=== PATIENT | female | born 1940 | race Caucasian/White ===

== ENCOUNTER 2024-12-13 01:28 | Inpatient (IN) | payer MEDICARE, SELFPAY ==
[2024-12-12 19:53] VITALS: BP 139/91
--- NOTE | 2024-12-12 22:45 | ED.GENMED ---
History of Present Illness
<Mely Lyons NP - Last Filed: 12/14/24 00:28>
General
Chief Complaint: DVT/Possible Blood Clot
Source: patient
Exam Limitations: none
Time Seen by Provider: 12/12/24 21:40
Nursing documentation reviewed up to this point in time: agreed with
History of Present Illness
History of Present Illness:
patient states she was making her bed and lifted the side of her mattress. Reports sudden onset of pain to both thighs. Reports thighs began to feel numb. SHe states that since then she has had pain in her back and LLE. Noticed swelling to LLE.
SHe was taken to by daughter marlin. Advised to come to ED to r/o DVT. No history of blood clots. She has a history of metastatic breast CA, follow with oncology at [facility]. Denies any cp/pressure, SOB, cough
Past History
<Mely Lyons NP - Last Filed: 12/14/24 00:28>
Past History
ED Past Medical History: Cancer (metastatic breast CA)
Review of Systems
<Mely Lyons NP - Last Filed: 12/14/24 00:28>
Review of Systems
Allergies reviewed?: Yes
All Other Systems: ROS reviewed and negative except as documented in HPI and ROS
Constitutional: Reports no symptoms
EENT: Reports no symptoms
Respiratory: Reports no symptoms
Cardiac: Reports no symptoms
ABD/GI: Reports no symptoms
: Reports no symptoms
Musculoskeletal: Reports joint pain (Pain to low back LLE)
Skin: Reports other (LLE swelling, bluish tinge)
Neurological: Reports numbness (LLE numbness)
Psychiatric: Reports no symptoms
Phy Exam
<Mely Lyons NP - Last Filed: 12/14/24 00:28>
General Physical Exam
General Presentation: mild distress
General age: appears stated age
General Skin: warm and dry
General Habitus: normal
Cardiovascular Exam
Cardiovascular Exam: regular rate/rhythm
Gastrointestinal Exam
Gastrointestinal Exam: non tender and soft
Neurological Exam
Neurological Exam: alert, oriented x3, CN II-XII intact, no motor deficits and no sensory deficits
Musculoskeletal Exam
Musculoskeletal Exam: full ROM and neuro vasc intact (left DP/PT pulses by doppler. )
Skin Exam
Skin Exam: warm/dry and other (LLE swelling from groin to toes, bluish tinge)
Psychiatric Exam
Psychiatric Exam: normal mood/affect
Course
<Mely Lyons NP - Last Filed: 12/14/24 00:28>
Orders/Labs/Results
Orders:
Orders
12/12/24 19:59
US Periph Venous LOWER Ext LT Urgent
Comment:
Reason For Exam: leg pain, swelling
12/12/24 22:52
Heparin 4,800 units IV NOW STA
Pharmacy Request to Place See Dose Instructions PO NOW STA
Discontinue all Active Warfarin orders?: Yes
Nursing to Place Non Medication Order As Directed
Physician Order: PTT 6 hours after initial start of Heparin infusion
Above order entered?: Yes
12/12/24 23:38
Heparin 4,800 units IV PRN PRN
12/12/24 23:43
Heparin 2,400 units IV PRN PRN
12/12/24 23:45
Heparin 17882 Units/250 ml 25,000 units in 250 ml IV PER PROTOCOL
Weight to be used for heparin protocol in kilograms (kg):: 60
Protocol:: DVT/PE
PTT Goal Range to be used:: PTT 73 to 111 seconds
Order type:: Initial
INITIAL Infusion Dose (UNITS/KG/hr) & then follow protocol:: 18 units/kg/hr
Infusion Dose in UNITS/hr & then follow protocol (UNITS/hr):: 1,100
INFUSION RATE in mL/hr & then follow protocol (mL/hr):: 11
For DVT/PE algorithm, re-bolus for low PTT?: Yes
PTT less than or equal to 64 seconds:: Re-bolus 80 units/kg (max 10,000units). Increase by 200 units/hr
(+ 2mL/hr)
PTT 64.1 to 72.9 seconds:: Re-bolus 40 units/kg (max 5,000 units). Increase by 100 units/hr
(+ 1mL/hr)
PTT 73 to 111 seconds:: Target Range. No change in rate.
PTT 111.1 to 130.9 seconds:: Decrease rate by 100 units/hr (- 1 mL/hr)
PTT 131 to 199.9 seconds:: HOLD for 1 hr. Then decrease by 200 units/hr (- 2mL/hr)
PTT greater than or equal to 200 seconds:: HOLD for 2 hrs & Notify Provider. Then decrease by 200 units/hr
(- 2mL/hr)
Lab follow-up:: Each change, PTT q6h until 2 consecutive are therapeutic. Then
PTT daily.
12/12/24 23:50
Complete Blood Count/With Diff Urgent
PTT Urgent
Comment: Obtain baseline before beginning heparin infusion if not already collected
12/13/24
CT Chest PE Study Urgent
Reason For Exam: extensive DVT
12/13/24 00:45
Comprehensive Metabolic Panel Urgent
Comment: REDRAW
12/13/24 01:11
Admit/Transfer Patient As Directed
Co-Sign Provider:
Level of Care: Inpatient admission
Assign to:: Medical/Surgical
Physician / Group: Noelle
Diagnosis: DVT
Reason for Hospitalization: DVT
Expected length of stay greater than two midnights?: Yes
ELOS- Estimated Length of Stay in days: 2
I certify the patient meets the requirements for IP care: Yes
PRN Pain Medication Management As Directed
May give lesser potent ordered pain med per pt: Yes
preference::
Protocol:: Medication orders for pain may be administered in a
manner that supports deferring to patient preference
when the pt is:
- Requesting an ordered lesser potent pain medication.
Least to most potent pain medications are defined
as: acetaminophen < NSAID < tramadol < opioids
(morphine, oxycodone, hydromorphone).
- Requesting a lesser dose of the same medication IF
ORDERED.
- Requesting a less intrusive route of administration
if both routes are prescribed by the provider (PO <
IV).
12/13/24 01:13
Code Status As Directed
Resuscitation Status: Do not resuscitate
Reached after discussion with pt or family/Healthcare POA: Yes
DNR Bracelet Application ONCE
12/13/24 05:53
PTT Q6
12/13/24 05:54
Acetaminophen [Tylenol] 650 mg PO Q4HPRN PRN
Bisacodyl [Dulcolax] 10 mg RECTAL [id number] PRN
Docusate W/Senna [Senokot-S] 1 tablet PO BIDPRN PRN
Polyethylene Glycol Powder [Miralax] 17 grams PO DAILYPRN PRN
Tramadol HCl [Ultram] 50 mg PO Q6HPRN PRN
12/13/24 05:54
VTE Contraindication Routine
VTE Mechanical Device Contraindication: Medical Contraindication
Pharmocologic Contraindication: Medical Contraindication
Activity As Directed
Activity Level: With Assistance
Neurological Checks As Directed
Frequency: q8h
Vital Signs As Directed
Frequency: Per unit guidelines
Lumbar Spine, 2 or 3 View [CR Lumbar Spine 2 Or 3 Views] Routine
Comment:
Reason For Exam: backpain rad to legs, h/o ca, eval compression fx
Pulse Ox/spot Check [RESP] Routine
Quantity: 1
Pt Eval And Treat Routine
Activity Level: With Assistance
12/13/24 Breakfast
Regular
At Your Request: Limited Participation
Does patient need a safe tray?: No
Levothyroxine [Synthroid] 112 mcg PO DAILY @ 0600
12/13/24 06:28
Basic Metabolic Panel IN AM
Complete Blood Count/No Diff IN AM
12/13/24 08:00
Calcium 300mg(Ca. Carb. 750mg) [Tums Ex (Extra Strength) Chewable Tablet] 300 mg PO DAILY
Carvedilol [Coreg] 12.5 mg PO DAILY
Cholecalciferol (Vitamin D3) [VITAMIN D3 (cholecalciferol)] 50 mcg PO DAILY
Lidocaine [Lidocaine 4% Patch] 1 patch TOPICAL DAILY
Apply Lidocaine patch(s) to:: low back
12/13/24 20:00
capecitabine 500 mg PO BID
12/13/24 22:00
Trazodone [Desyrel] 50 mg PO HS
Abnormal Lab Results
12/12/24 12/13/24
23:50 00:45
WBC 13.0 H 10^3/uL
(4.8-10.8)
RBC 3.30 L 10^6/uL
(4.20-5.40)
Hct 34.9 L %
(37.0-47.0)
MCV 105.8 H fL
(81.0-99.0)
MCH 36.7 H pg
(27.0-31.0)
RDW 14.6 H %
(11.5-14.5)
Abs Immat Gran (auto) 0.2 H 10^3/uL
(0-0.05)
Absolute Neuts (auto) 9.4 H 10^3/uL
(1.4-6.5)
Absolute Monos (auto) 1.2 H 10^3/uL
(0.1-0.6)
Immature Gran % 1.5 H %
(0-0.5)
Lymphocytes % 13.6 L %
(20.5-51.1)
BUN 28 H mg/dl
(7-17)
Creatinine 1.1 H mg/dL
(0.6-1.0)
Glucose 120 H mg/dl
(70-99)
12/12/24 23:50
12/13/24 00:45
Vital Signs
Initial and Last Documented VS:
Initial Vital Signs
Temp Pulse Resp BP Pulse Ox
98.1 F 113 20 139/91 99
12/12/24 19:53 12/12/24 19:53 12/12/24 19:53 12/12/24 19:53 12/12/24 19:53
Last Documented Vital Signs
Temp Pulse Resp BP Pulse Ox
98.6 F 98 18 121/65 95
12/13/24 23:40 12/13/24 23:40 12/13/24 23:40 12/13/24 23:40 12/13/24 23:40
<Viktor Evangelista, DO - Last Filed: 12/12/24 22:54>
Orders/Labs/Results
Orders:
Orders
12/12/24 19:59
US Periph Venous LOWER Ext LT Urgent
Comment:
Reason For Exam: leg pain, swelling
12/12/24 22:52
Heparin 4,800 units IV NOW STA
Pharmacy Request to Place See Dose Instructions PO NOW STA
Discontinue all Active Warfarin orders?: Yes
Nursing to Place Non Medication Order As Directed
Physician Order: PTT 6 hours after initial start of Heparin infusion
Above order entered?: Yes
12/12/24 23:38
Heparin 4,800 units IV PRN PRN
12/12/24 23:43
Heparin 2,400 units IV PRN PRN
12/12/24 23:45
Heparin 37922 Units/250 ml 25,000 units in 250 ml IV PER PROTOCOL
Weight to be used for heparin protocol in kilograms (kg):: 60
Protocol:: DVT/PE
PTT Goal Range to be used:: PTT 73 to 111 seconds
Order type:: Initial
INITIAL Infusion Dose (UNITS/KG/hr) & then follow protocol:: 18 units/kg/hr
Infusion Dose in UNITS/hr & then follow protocol (UNITS/hr):: 1,100
INFUSION RATE in mL/hr & then follow protocol (mL/hr):: 11
For DVT/PE algorithm, re-bolus for low PTT?: Yes
PTT less than or equal to 64 seconds:: Re-bolus 80 units/kg (max 10,000units). Increase by 200 units/hr
(+ 2mL/hr)
PTT 64.1 to 72.9 seconds:: Re-bolus 40 units/kg (max 5,000 units). Increase by 100 units/hr
(+ 1mL/hr)
PTT 73 to 111 seconds:: Target Range. No change in rate.
PTT 111.1 to 130.9 seconds:: Decrease rate by 100 units/hr (- 1 mL/hr)
PTT 131 to 199.9 seconds:: HOLD for 1 hr. Then decrease by 200 units/hr (- 2mL/hr)
PTT greater than or equal to 200 seconds:: HOLD for 2 hrs & Notify Provider. Then decrease by 200 units/hr
(- 2mL/hr)
Lab follow-up:: Each change, PTT q6h until 2 consecutive are therapeutic. Then
PTT daily.
12/12/24 23:50
Complete Blood Count/With Diff Urgent
PTT Urgent
Comment: Obtain baseline before beginning heparin infusion if not already collected
12/13/24
CT Chest PE Study Urgent
Reason For Exam: extensive DVT
12/13/24 00:45
Comprehensive Metabolic Panel Urgent
Comment: REDRAW
12/13/24 01:11
Admit/Transfer Patient As Directed
Co-Sign Provider:
Level of Care: Inpatient admission
Assign to:: Medical/Surgical
Physician / Group: Noelle
Diagnosis: DVT
Reason for Hospitalization: DVT
Expected length of stay greater than two midnights?: Yes
ELOS- Estimated Length of Stay in days: 2
I certify the patient meets the requirements for IP care: Yes
PRN Pain Medication Management As Directed
May give lesser potent ordered pain med per pt: Yes
preference::
Protocol:: Medication orders for pain may be administered in a
manner that supports deferring to patient preference
when the pt is:
- Requesting an ordered lesser potent pain medication.
Least to most potent pain medications are defined
as: acetaminophen < NSAID < tramadol < opioids
(morphine, oxycodone, hydromorphone).
- Requesting a lesser dose of the same medication IF
ORDERED.
- Requesting a less intrusive route of administration
if both routes are prescribed by the provider (PO <
IV).
12/13/24 01:13
Code Status As Directed
Resuscitation Status: Do not resuscitate
Reached after discussion with pt or family/Healthcare POA: Yes
DNR Bracelet Application ONCE
12/13/24 05:53
PTT Q6
12/13/24 05:54
Acetaminophen [Tylenol] 650 mg PO Q4HPRN PRN
Bisacodyl [Dulcolax] 10 mg RECTAL [id number] PRN
Docusate W/Senna [Senokot-S] 1 tablet PO BIDPRN PRN
Polyethylene Glycol Powder [Miralax] 17 grams PO DAILYPRN PRN
Tramadol HCl [Ultram] 50 mg PO Q6HPRN PRN
12/13/24 05:54
VTE Contraindication Routine
VTE Mechanical Device Contraindication: Medical Contraindication
Pharmocologic Contraindication: Medical Contraindication
Activity As Directed
Activity Level: With Assistance
Neurological Checks As Directed
Frequency: q8h
Vital Signs As Directed
Frequency: Per unit guidelines
Lumbar Spine, 2 or 3 View [CR Lumbar Spine 2 Or 3 Views] Routine
Comment:
Reason For Exam: backpain rad to legs, h/o ca, eval compression fx
Pulse Ox/spot Check [RESP] Routine
Quantity: 1
Pt Eval And Treat Routine
Activity Level: With Assistance
12/13/24 Breakfast
Regular
At Your Request: Limited Participation
Does patient need a safe tray?: No
Levothyroxine [Synthroid] 112 mcg PO DAILY @ 0600
12/13/24 06:28
Basic Metabolic Panel IN AM
Complete Blood Count/No Diff IN AM
12/13/24 08:00
Calcium 300mg(Ca. Carb. 750mg) [Tums Ex (Extra Strength) Chewable Tablet] 300 mg PO DAILY
Carvedilol [Coreg] 12.5 mg PO DAILY
Cholecalciferol (Vitamin D3) [VITAMIN D3 (cholecalciferol)] 50 mcg PO DAILY
Lidocaine [Lidocaine 4% Patch] 1 patch TOPICAL DAILY
Apply Lidocaine patch(s) to:: low back
12/13/24 20:00
capecitabine 500 mg PO BID
12/13/24 22:00
Trazodone [Desyrel] 50 mg PO HS
Abnormal Lab Results
12/12/24 12/13/24
23:50 00:45
WBC 13.0 H 10^3/uL
(4.8-10.8)
RBC 3.30 L 10^6/uL
(4.20-5.40)
Hct 34.9 L %
(37.0-47.0)
MCV 105.8 H fL
(81.0-99.0)
MCH 36.7 H pg
(27.0-31.0)
RDW 14.6 H %
(11.5-14.5)
Abs Immat Gran (auto) 0.2 H 10^3/uL
(0-0.05)
Absolute Neuts (auto) 9.4 H 10^3/uL
(1.4-6.5)
Absolute Monos (auto) 1.2 H 10^3/uL
(0.1-0.6)
Immature Gran % 1.5 H %
(0-0.5)
Lymphocytes % 13.6 L %
(20.5-51.1)
BUN 28 H mg/dl
(7-17)
Creatinine 1.1 H mg/dL
(0.6-1.0)
Glucose 120 H mg/dl
(70-99)
12/12/24 23:50
12/13/24 00:45
Vital Signs
Initial and Last Documented VS:
Initial Vital Signs
Temp Pulse Resp BP Pulse Ox
98.1 F 113 20 139/91 99
12/12/24 19:53 12/12/24 19:53 12/12/24 19:53 12/12/24 19:53 12/12/24 19:53
Last Documented Vital Signs
Temp Pulse Resp BP Pulse Ox
98.6 F 98 18 121/65 95
12/13/24 23:40 12/13/24 23:40 12/13/24 23:40 12/13/24 23:40 12/13/24 23:40
<Mely Lyons COLLECTION CLERK - Last Filed: 12/14/24 00:28>
*Pulse Oximetry
SaO2: 99
Patient hypoxic: no
*Critical Care Note
Total Time (30-74mins, 75-104mins- exclusive of procedures): Not Applicable
<Mely Lyons NP - Last Filed: 12/14/24 00:28>
Update Note
Update Note:
Patient to ED with complaint of LLE pain and swelling. US report of extensive occlusive DVT of common femoral vein thru the calf veins. NOn-occlusve thrombus in the proxial greater saphenous vein, and occlusive thrombus i estelita nid to distal greater
saphenous vein. Case discussed with dr. evangelista who also evaluated this patient. WIll start on heparin infusion and admit to hospitalist due to the extent of the thrombus. SHe denies any SOB, cp/pressure but will sent for PE ST. Discussed
findings and plan with patient and daughter and they are agreeable.
Requested medication list from patient and daughter. Patient does not recall current meds. Daughter states she gave full list to and then gave the discharge papers to triage. SHe reports she does not recall medications.
ED Attending Note
<Mely Lyons NP - Last Filed: 12/14/24 00:28>
-
Portions of this chart may have been created with voice recognition software.� Occasional wrong word or��sound alike� substitutions may have occurred due to the inherent limitations of voice recognition software.
<Viktor Evangelista DO - Last Filed: 12/12/24 22:54>
ED Attending Note
Patient seen and examined by attending physician: Yes
I performed the substantive portion of visit, reviewed & personally made and approve the management plan that is documented in note by myself or FELISA.: Yes
ED Attending Note:
Seen with COLLECTION CLERK examined independently patient with extensive left lower extremity DVT with tachycardia
Denies shortness of breath apparently having trouble walking, due to pain
Patient with color changes no coolness of her lower extremity able to get pulses by Doppler
Patient without true phlegmasia at this point other than I think that is a possibility moving forward
Low threshold to admit, will check CTA to rule out PE
Discharge Plan
Departure
Patient Disposition: Admit
Date of Disposition: 12/13/24
Time of Disposition: 00:21
Presentation/result/management discussed w/ accepting MD/DO: Hospitalist
Patient with high blood pressure during this ER visit?: No
Covid-19: Not Applicable
Discharge Problem:
DVT of lower extremity (deep venous thrombosis)
Interventions
Interventions:
*Risk Screen - Suicide Last Done: 12/13/24 05:27
*General Assessment Last Done: 12/12/24 19:58
*Neglect/Abuse Screening Last Done: 12/12/24 19:58
*ED- Fall Risk Assessment Last Done: 12/12/24 22:00
*ED COVID-19 Vaccine History Last Done: 12/13/24 05:27
*ED Influenza Vaccine History Last Done: 12/12/24 19:58
*Nursing Disposition Last Done: 12/12/24 22:00
ED- Cardiac Assessment Last Done: 12/12/24 21:53
ED- Pulmonary Assessment Last Done: 12/12/24 21:53
ED-Peripheral Vascular Assessment Last Done: 12/12/24 21:54
ED-Skin Assessment Last Done: 12/12/24 21:53
[2024-12-12 22:57] VITALS: BP 157/92
[2024-12-12 23:00] VITALS: BP 160/82
[2024-12-12] MEDS: HEPARIN 4800 UNITS IV (23:38)
[2024-12-12] MEDS: HEPARIN 25000 UNITS/250 ML IV (23:48)
[2024-12-13] VITALS (9 sets, daily range): BP systolic 105–132; BP diastolic 61–87; PULSE 112; BMI 25.5
[2024-12-13 00:14] LABS: APTT 27.0 Sec (23.4-35.0)
[2024-12-13 00:33] LABS: Hematocrit 34.9 % (37.0-47.0); Hemoglobin 12.1 g/dL (12.0-16.0); Mean Corp Hgb Conc. 34.7 g/dL (33.0-37.0); Mean Corpuscular Volume 105.8 fL (81.0-99.0); Nucleated Red Blood Cells % 0 %; Platelet Count 201 10^3/uL (130-400); Red Cell Dist. Width 14.6 % (11.5-14.5)
--- NOTE | 2024-12-13 00:48 | HPS.HSE ---
Family Physician
-
Family Physician: Macy Robbins
Chief Complaint
-
Leg swelling
History of Present Illness
This is a 84-year-old female with past medical history significant for breast cancer status post lumpectomy, hypothyroid, hypertension, presenting to the emergency department after developing swelling in left lower extremity.
She reported that she started having bilateral thigh pain after making her bed earlier in the day. As the day progressed she noticed some numbness in her thighs bilaterally. She started having radiation of the pain to her back and down mostly to
her left lower extremity. She noticed swelling in the left lower extremity and was taken to urgent care where she was advised to be evaluated in the emergency department to rule out a DVT.
Patient denies any prior history of venous thromboembolism. She denies any recent travels. She denies any known fractures,. She has no recent surgeries. She ambulates regularly with a walker as needed independent living facility.
She denies any shortness of breath. She denies any chest pain. She denies orthopnea or PND. She has denied any cough fevers or chills.
In the emergency department she was afebrile, blood pressure was 160/80 with a pulse of 95 and she was satting 90% on room air.
At a white count of 13, CBC otherwise unremarkable.
Ultrasound of the left lower extremity shows extensive occlusive thrombus throughout the common femoral vein Trufree calf veins, nonocclusive thrombus in the proximal greater saphenous vein and occlusive thrombus in the mid to distal greater
saphenous vein.
Medical History
Past Medical History
Past Medical History: Reports Cancer (breast Ca with mets to spine) and Hypothyroidism
Additional Past Medical History:
CKD III
Gallstones
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
Social History
Tobacco: Non-smoker
Alcohol: None
Drug: None
Family History
Family History: Not pertinent
Allergies / Home Medications
Allergies reflects when Allergies were last updated in [employer].
Home Medications with original date entered in [employer]
Allergy/Medication List:
Allergies
Allergy/AdvReac Type Severity Reaction Status Date / Time
No Known Allergies Allergy Unverified 12/12/24 19:58
Home Medications
Vitamin D3 50 mg PO DAILY 12/13/24
calcium 600 mg capsule 1,200 mg PO 1XD 12/13/24
capecitabine 500 mg tablet 500 mg PO 2XD 12/13/24
carvedilol 12.5 mg tablet 12.5 mg PO 1XD 12/13/24
levothyroxine 13 mcg capsule 1.12 mcg PO DAILY 12/13/24
trazodone 50 mg tablet 50 mg PO HS 12/13/24
vitamin F27-ceteh acid 1,000 mg PO DAILY 12/13/24
Review of Systems
-
Constitutional: Reports No Symptoms
EENT: Reports No Symptoms
Respiratory: Reports No Symptoms
Cardiac: Reports No Symptoms
Abdomen/GI: Reports No Symptoms
: Reports No Symptoms
Musculoskeletal: Reports Joint Pain and Edema
Skin: Reports No Symptoms
Neurological: Reports No Symptoms
Endocrine: Reports No Symptoms
Hematologic/Lymphatic: Reports No Symptoms
Psych: Reports No Symptoms
Physical Exam
Vital Signs
Vital Signs
Temp Pulse Resp BP Pulse Ox
98.1 F 95 17 160/82 98
12/12/24 19:53 12/12/24 23:00 12/12/24 23:00 12/12/24 23:00 12/12/24 23:00
Physical Exam
General: Well Developed, Well Nourished and No Apparent Distress
HEENT: NormoCephalic, Moist mucous membranes and Atraumatic
Respiratory: Clear
Cardiac: S1/S2 and Regular Rhythm; No Murmur or Rub
GI: Soft, Non Tender, Non Distended and Normal Bowel Sounds; No Organomegaly
Rectal: Deferred by Provider
Genito-urinary: Deferred by me
Musculoskeletal: No Clubbing, No Cyanosis, Edema, Left Lower Extremity and Other (There is mild positive straight leg raise on the left which she describes as a pulling sensation radiating posteriorly down her thigh. No elicted numbness or
tingling.)
Skin: No Rash
Neuro: AO x 3 and Nonfocal/grossly intact
Laboratory Results
-
12/12/24 23:50
Laboratory Results
APTT Cancelled 12/13/24 00:00
Total Bilirubin Cancelled 12/12/24 23:50
AST Cancelled 12/12/24 23:50
ALT Cancelled 12/12/24 23:50
Alkaline Phosphatase Cancelled 12/12/24 23:50
Data Reviewed
-
Ultrasound: Report Reviewed by me
Lab Data: Labs Reviewed by me
Old Records: Reviewed
Impression/Plan
-
IMPRESSION:
84-year-old with history of breast cancer currently being treated with capecitabine presenting to the emergency department with back pain and left lower extremity swelling found to have left lower extremity DVT that is quite extensive. She has no
respiratory symptoms. Labs unremarkable. Likely has DVT on the basis of malignancy as she has no other provoking signs of findings. Patient has chronic back pain that seems to be exacerbated. She does have a history of spinal mets from her
breast comes and we cannot rule out a new compression fracture.
PLAN:
Left lower extremity DVT -extensive with occlusive thrombosis but no Dolens.
-Admit to MedSurg
-Started on heparin
-CT PE pending
-If patient stable, can convert to oral anticoagulation, she will need to be on anticoagulation indefinitely in the setting of malignancy
-Monitor serial examinations
Back pain -mild radicular signs, no myelopathy
-Spinal x-ray to eval for compression fracture in lumbar spine
- CT PE should allow some imaging of thoracic spine
- if fracture evaluate mets and possible XRT tx
-Pain control with Tylenol, tramadol topical lidocaine for now
-PT consultation
Breast cancer
-Continue capecitabine for 3 mg till Wednesday, then she will have 1 week of
Review prophylaxis�on heparin subcu
CODE STATUS�DNR DNI
[2024-12-13 03:16] LABS: ALT (SGPT) 20 U/L (0-35); AST (SGOT) 22 U/L (14-36); Albumin 3.8 g/dl (3.5-5.0); Alkaline Phosphatase 87 U/L (38-126); Calcium 9.1 mg/dl (8.4-10.2); Carbon Dioxide 26 mmol/L (22-30); Chloride 104 mmol/L (98-107); Glucose 120 mg/dl (70-99); Potassium 5.1 mmol/L (3.5-5.1); Sodium 135 mmol/L (135-145); Total Protein 6.7 g/dl (6.3-8.2); eGFR 49.24
[2024-12-13 03:52] LABS: Blood Urea Nitrogen 28 mg/dl (7-17)
--- NOTE | 2024-12-13 05:57 | PTCARENOTE ---
Recieved pt from ED. Pt. ambulated from stretcher to bed with x1 asiist. Pt. Oriented to unit calll call hand within reach. Pt care ongoing
[2024-12-13] MEDS: SYNTHROID 112 MCG PO (06:25)
[2024-12-13 06:37] LABS: APTT > 200 Sec (23.4-35.0)
[2024-12-13 07:15] LABS: Hematocrit 35.5 % (37.0-47.0); Hemoglobin 12.0 g/dL (12.0-16.0); Mean Corp Hgb Conc. 33.8 g/dL (33.0-37.0); Mean Corpuscular Volume 106.0 fL (81.0-99.0); Platelet Count 196 10^3/uL (130-400); Red Cell Dist. Width 14.7 % (11.5-14.5)
[2024-12-13 08:22] LABS: Blood Urea Nitrogen 25 mg/dl (7-17); Carbon Dioxide 26 mmol/L (22-30); Estimated Creatinine Clearance 33 ml/min; eGFR 55.21
[2024-12-13 08:34] LABS: Calcium 9.0 mg/dl (8.4-10.2); Chloride 104 mmol/L (98-107); Glucose 113 mg/dl (70-99); Potassium 5.0 mmol/L (3.5-5.1); Sodium 135 mmol/L (135-145)
[2024-12-13] MEDS: COREG 12.5 MG PO ×2 (09:41→21:31)
[2024-12-13] MEDS: LIDOCAINE 4% PATCH 1 PATCH TOPICAL (09:41)
[2024-12-13] MEDS: TUMS EX (EXTRA STRENGTH) CHEWABLE TABLET 300 MG PO (09:41)
[2024-12-13] MEDS: VITAMIN D3 (cholecalciferol) 50 MCG PO (09:42)
--- NOTE | 2024-12-13 11:11 | W.PN.HOSP.TC ---
Today's Communication/Plan
-
as per discussion with [facility] - will have bedside eval by them
afterwards - D/C on [facility]
Assessment / Plan
Assessment / Plan
84yo F with PMHX of metastatic breast CA, hypothyroidism, HTN came with 1 day of LLE swelling, found acute DVT. CT chest also done but not concerning of pulmonary embolism, also patient not hypoxxic. No significant LLE pain or discoloration seen
bedside.
A/P:
#Acute DVT
most likely 2/2 CA
Heparin in hospital then to [facility] - verifying pricing
[facility] consult
#Leukocytosis
2/2 DVT
#Small focus of groundglass opacity within the RUL
new compared to PET/CT scan of September 20, 2024
Scheduled for oncologist appt on Jan 12 and as per daughter -planned for PET. Emphasized importance of PET scan
#Breast CA
#Metastatic disease of the spine
#Chronic vertebral compression deformities
no new ambulatory deficiency
chronic back pain
cont following with existent oncologist
#Hypothyroidism
#HLD
#essential HTN
cont home meds
DVT ppx heparin
DNR/DNI
I have spent at least 55min reviewing chart, test results, communication with consultants and providing direct patient care
Anticipated Discharge: Within 24 hours
Subjective/Interval History
-
Date of Service: December 13, 2024
Objective Data
-
Labs:
Laboratory Results
12/12/24 12/13/24 12/13/24
23:50 00:00 00:45
WBC 13.0 H
Hgb 12.1
Hct 34.9 L
Plt Count 201
APTT 27.0 Cancelled
Sodium Cancelled 135
Potassium Cancelled 5.1
Chloride Cancelled 104
Carbon Dioxide Cancelled 26
BUN Cancelled 28 H
Creatinine Cancelled 1.1 H
Glucose Cancelled 120 H
Calcium Cancelled 9.1
Total Bilirubin Cancelled 0.5
AST Cancelled 22
ALT Cancelled 20
Alkaline Phosphatase Cancelled 87
12/13/24 12/13/24 12/13/24
05:53 06:28 12:00
WBC 11.6 H
Hgb 12.0
Hct 35.5 L
Plt Count 196
APTT > 200 H* Pending
Sodium 135
Potassium 5.0
Chloride 104
Carbon Dioxide 26
BUN 25 H
Creatinine 1.0
Glucose 113 H
Calcium 9.0
Total Bilirubin
AST
ALT
Alkaline Phosphatase
Vital Signs:
Vital Signs
Temp Pulse Resp BP Pulse Ox
98.5 F 101 20 132/79 97
12/13/24 07:43 12/13/24 09:41 12/13/24 07:43 12/13/24 09:41 12/13/24 07:43
Review of Systems
-
History Source: Patient
All other systems: Reviewed and negative
Physical Exam
-
General: Comfortable
HEENT: Normocephalic
Respiratory: Clear to Auscultation
Cardiac: Regular Rhythm
GI: Soft, Nontender and Nondistended
Musculoskeletal: Edema, Left Lower Extrem
Neuro: Awake, Alert, Oriented and AO x 3
Psych: Calm
[2024-12-13] MEDS: ULTRAM 50 MG PO ×2 (11:39→20:42)
--- NOTE | 2024-12-13 11:57 | W.PN.UPDATE ---
Addendum entered and electronically signed by Rafael Braga MD 12/13/24 12:21:
I called the patient's daughter Dimple over the phone as per the patient's request. Had a very extensive discussion with her. Explained everything in detail. Answered her questions to her satisfaction. She is in agreement with the plan.
Original Note:
Update Note
Progress Note Update
Seen and examined with DENIS Rojas. Full consultation to follow. 84-year-old female with metastatic breast cancer who developed acute onset of left leg pain yesterday. Actually she notes that initially she had pain in bilateral legs and points to her
groin/thigh area. Then she had still some discomfort in the left leg and last evening noted significant swelling in her left leg. And she noted some pain with ambulation. Therefore presented here. She denies any prior history of DVTs. No family
history of DVTs that she is aware of. No recent hospitalizations. No recent major surgical procedures. No recent illnesses. She denies any history of any strokes/head bleeds/GI bleeds. Denies any pain at rest currently.
On exam/she is awake and alert. No acute distress. Breathing is unlabored. Abdomen is soft. Left thigh and calf are swollen compared to right side. However the compartments are all soft and easily compressible. Motor/sensory function intact.
Foot is warm.
Duplex reviewed.
Plan/ Acute extensive left lower extremity DVT in the setting of metastatic breast cancer. No other provoking factors. Based on this would recommend anticoagulation (will defer to primary care team/hematology/oncology regarding agent of choice).
Recommend compression therapy (we wrapped her with Brady bandages ourselves). Discussed with her the option/alternative of catheter-based procedures in the setting of iliofemoral DVT (not clear that the iliac veins are involved, but occlusive
thrombus is noted in the common femoral vein on duplex imaging). Discussed the mainstay of benefit in terms of reducing/mitigating postthrombotic symptoms. Given her age (84 years old) and medical risk factors including metastatic breast cancer, I
think the risk may outweigh benefit of any catheter-based thrombolytic or mechanical thrombectomy procedure. Discussed this all with her. She is in agreement with anticoagulation and compression. Would observe over the next 24 hours. If she
continues to have significant pain with ambulation and limitation tomorrow as well, then we will consider single-stage mechanical thrombectomy procedure.
--- NOTE | 2024-12-13 12:01 | CON.VAS ---
Consultation
Consultation Request
Date/Time Consultation Performed: 12/13/2024 1200
Requesting Provider: Hospitalist
Performing Provider: Helga Rojas NP-C for Rafael Braga M.D.
Reason for Consultation: Left lower extremity DVT
Medical History
-
Chief Complaint: Left lower extremity DVT
History of Present Illness:
This is an 84-year-old female with significant past medical history of metastatic breast cancer and hypothyroidism who developed acute onset of left leg pain and edema yesterday. Actually she notes that initially she had pain in bilateral legs and
points to her groin/thigh area. Then she had still some discomfort in the left leg and last evening noted significant swelling in her left leg. And she noted some pain with ambulation. Therefore presented here. She denies any prior history of
DVTs. No family history of DVTs that she is aware of. No recent hospitalizations. No recent major surgical procedures. No recent illnesses. She denies any history of any strokes/head bleeds/GI bleeds. Denies any pain at rest currently.
Patient had an ultrasound of left lower extremity which demonstrated, 'extensive occlusive thrombus throughout the common femoral vein through the calf veins. Nonocclusive thrombus in the proximal greater saphenous vein, and occlusive thrombus in
the mid to distal greater saphenous vein.'
Past Medical History
Past Medical History: Cancer (Stage IV breast cancer with metastatic disease to spine) and Hypothyroidism
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
Social History
Tobacco: Non-Smoker
Alcohol: None
Drug: None
Living: Assisted Living
Allergies / Home Medications
Allergy/AdvReac Type Severity Reaction Status Date / Time
No Known Allergies Allergy Unverified 12/12/24 19:58
�Medication �Instructions �Recorded �Confirmed �Type
Vitamin D3 50 mg PO DAILY 12/13/24 12/13/24 History
apixaban 5 mg tablet (Eliquis) 5 mg PO DIRECTED #74 tabs 12/13/24 Rx
calcium 600 mg capsule 1,200 mg PO 1XD 12/13/24 12/13/24 History
capecitabine 500 mg tablet 500 mg PO 2XD 12/13/24 12/13/24 History
carvedilol 12.5 mg tablet 12.5 mg PO 1XD 12/13/24 12/13/24 History
levothyroxine 13 mcg capsule 1.12 mcg PO DAILY 12/13/24 12/13/24 History
trazodone 50 mg tablet 50 mg PO HS 12/13/24 12/13/24 History
vitamin M57-abtvu acid 1,000 mg PO DAILY 12/13/24 12/13/24 History
Review of Systems
-
History Source: Patient
Constitutional: Reports No Symptoms
EENT: Reports No Symptoms
Respiratory: Reports No Symptoms
Cardiac: Reports No Symptoms
Vascular: Reports Other (Bilateral lower extremity thigh pain and left lower extremity swelling)
Abdomen/GI: Reports No Symptoms
: Reports No Symptoms
Musculoskeletal: Reports Edema (Acute onset left lower extremity swelling)
Skin: Reports No Symptoms
Neurological: Reports No Symptoms
Endocrine: Reports No Symptoms
Physical Exam
Vital Signs
Temp Pulse Resp BP Pulse Ox
98.5 F 101 20 132/79 97
12/13/24 07:43 12/13/24 09:41 12/13/24 07:43 12/13/24 09:41 12/13/24 07:43
Lab Results
12/13/24 06:28
12/13/24 06:28
Physical Exam
General: No Apparent Distress
HEENT: Normocephalic, Anicteric and Atraumatic
Respiratory: Non Labored Respirations
Cardiac: Negative JVD
GI: Soft, Non Tender and Non Distended
Musculoskeletal: Edema (Posterior left lower extremity edema, left thigh and calf compartments soft)
Skin: Warm and Other (Bilateral feet warm)
Neuro: AO x 3 and No Motor Deficits (Left lower extremity motor and sensory function intact)
Assessment / Plan
-
Assessment: 84-year-old female with acute extensive left lower extremity DVT in the setting of metastatic breast cancer. No other provoking factors.
Plan:
Recommend anticoagulation (will defer to primary care team/hematology/oncology regarding agent of choice). Recommend compression therapy (I wrapped her with Brady bandages ourselves). Dr. Rafael Braga M.D. discussed with her the option/alternative of
catheter-based procedures in the setting of iliofemoral DVT (note it is not clear if iliac veins are involved, but occlusive thrombus is noted in the common femoral vein on duplex imaging). Dr. Braga discussed the mainstay of benefit in terms of
reducing/mitigating postthrombotic symptoms. Given her age (84 years old) and medical risk factors including metastatic breast cancer, the risk may outweigh benefit of any catheter-based thrombolytic or mechanical thrombectomy procedure. Patient
is in agreement with anticoagulation and compression. Would observe over the next 24 hours. If she continues to have significant pain with ambulation and limitation tomorrow as well, then we will consider single-stage mechanical thrombectomy
procedure.
I performed this shared service with the attending. I evaluated the patient [id number] and have entered clinical documentation as shown in the encounter note. I performed the following component(s): history and physical exam. Note that medical
decision making is not final until attested by vascular attending.
[2024-12-13 12:20] LABS: APTT 117.9 Sec (23.4-35.0)
--- NOTE | 2024-12-13 13:47 | CM ---
CM reviewed chart, patient seen bedside, initial assessment completed.
Patient is a 84-year-old female with past medical history significant for breast cancer status post lumpectomy, hypothyroid, hypertension, presenting to the emergency department after developing swelling in left lower extremity.
Patient resides independently at [facility]. Patient has a RW, has a script for therapy services. Patient reports she is not currently in therapy, aware of therapy recommendation of home health, confirms she has a script and will start therapy once
able. Patient denies SNF. PCP confirmed [facility], pharmacy [facility] in [place]. Patient denies insecurities at home.
Consult received for cardona check of Eliquis (10 mg BID 7 days, then 5mg BID)- spoke with pharmacy, starter pack $47.00, update to Hospitalist.
CM will continue to follow for all discharge planning needs.
Plan; return to [facility]
[2024-12-13 20:17] LABS: APTT 108.4 Sec (23.4-35.0)
[2024-12-13] MEDS: NON-FORMULARY ITEM 500 MG PO (20:34)
[2024-12-13] MEDS: DESYREL 50 MG PO (21:29)
[2024-12-14 02:27] LABS: APTT 118.2 Sec (23.4-35.0)
[2024-12-14] MEDS: SYNTHROID 112 MCG PO (05:10)
[2024-12-14] MEDS: HEPARIN 25000 UNITS/250 ML IV (05:46)
--- NOTE | 2024-12-14 07:35 | W.PN.VS ---
Addendum entered and electronically signed by Rafael Braga MD 12/14/24 09:32:
Seen and examined with DENIS Blount. Agree with findings as noted below. Pain somewhat better. Swelling significantly improved on exam. Plan/continue compression. Continue anticoagulation. Okay to transition to oral anticoagulation. Hold off on
any procedure at this point. We will sign off. Please call with questions. Would have patient follow-up with her optical instruments supervisor/oncologist regarding follow-up for DVT management/anticoagulation duration etc. Does not necessarily need to follow-up
with vascular surgery unless any other issues.
Original Note:
Today's Communication / Plan
-
Seen and assessed with Dr Braga
Assessment/Plan
-
DVT
Plan:
Ok for DC from vascular standpoint on anticoagulation
Cont ZORA wrap and elevation as tolerated
Subjective Data
-
Date of Service: December 14, 2024
Pt seen at bedside this am with Dr Braga. Pt offers no complaints at this time. No events overnight.
Objective Data
-
Vital Signs
Temp Pulse Resp BP Pulse Ox
98.6 F 98 18 121/65 95
12/13/24 23:40 12/13/24 23:40 12/13/24 23:40 12/13/24 23:40 12/13/24 23:40
Intake and Output
12/13/24 12/14/24 12/15/24
06:59 06:59 06:59
Intake Total 660 / 660
Balance 660 / 660
Intake:
Oral fluids 660 / 660
Other:
Number of approximated MODERATE 2
amounts of urine
Lab Results
12/13/24 06:28
12/13/24 06:28
Calcium 9.0 mg/dl (8.4-10.2) 12/13/24 06:28
Total Bilirubin 0.5 mg/dl (0.2-1.3) 12/13/24 00:45
AST 22 U/L (14-36) 12/13/24 00:45
ALT 20 U/L (0-35) 12/13/24 00:45
Alkaline Phosphatase 87 U/L (38-126) 12/13/24 00:45
Total Protein 6.7 g/dl (6.3-8.2) 12/13/24 00:45
Albumin 3.8 g/dl (3.5-5.0) 12/13/24 00:45
Physical Exam
-
AAOx3
No tachypnea on RA
No tachycardia
Abd soft
LLE softer then yesterday, warm
ZORA wrap reapplied
+pulses
[2024-12-14 08:43] LABS: APTT 98.5 Sec (23.4-35.0)
[2024-12-14 08:45] VITALS: BP 104/64
[2024-12-14] MEDS: NON-FORMULARY ITEM 500 MG PO (09:10)
[2024-12-14] MEDS: COREG 12.5 MG PO (09:11)
[2024-12-14] MEDS: VITAMIN D3 (cholecalciferol) 50 MCG PO (09:12)
[2024-12-14] MEDS: LIDOCAINE 4% PATCH TOPICAL (09:12)
[2024-12-14] MEDS: TUMS EX (EXTRA STRENGTH) CHEWABLE TABLET PO ×2 (09:12→09:15)
[2024-12-14] MEDS: ELIQUIS 10 MG PO (10:11)
--- NOTE | 2024-12-14 10:30 | W.PN.HOSP.TC ---
Today's Communication/Plan
-
dc
Assessment / Plan
Assessment / Plan
84yo F with PMHX of metastatic breast CA, hypothyroidism, HTN came with 1 day of LLE swelling, found acute DVT. CT chest also done but not concerning of pulmonary embolism, also patient not hypoxic. No significant LLE pain or discoloration seen
bedside. [facility] evaluated and no intervention needed. Patient switched to Eliquis as copay is around $50 per mo and family agreeable. Discussed self-monitoring for signs of bleeding, such as sudden weakness, paleness, black or bloody stools. Advised
avoidance of head trauma and falls. Patient and family verbalized understanding of the instructions. Discussed follow up with established oncologist for new small focus of ground-glass opacity in RUL seen on CT.
A/P:
#Acute DVT
most likely 2/2 CA
Heparin in hospital then to [facility] - verifying pricing
[facility] consult
#Leukocytosis
2/2 DVT, since no fevers and improving off Abx
#Small focus of ground-glass opacity within the RUL
new compared to PET/CT scan of September 20, 2024
Scheduled for oncologist appt on Jan 12 and as per daughter -planned for PET. Emphasized importance of PET scan
#Breast CA
#Metastatic disease of the spine
#Chronic vertebral compression deformities
no new ambulatory deficiency
chronic back pain
cont following with existent oncologist
#Hypothyroidism
#HLD
#essential HTN
cont home meds
DVT ppx heparin
DNR/DNI
I have spent at least 36min reviewing chart, test results, communication with consultants and providing direct patient care
Anticipated Discharge: Today
Subjective/Interval History
-
Date of Service: December 14, 2024
Objective Data
-
Labs:
Laboratory Results
12/14/24 12/14/24
02:00 08:23
APTT 118.2 H 98.5 H
Vital Signs:
Vital Signs
Temp Pulse Resp BP Pulse Ox
98.5 F 93 16 104/64 98
12/14/24 08:45 12/14/24 09:11 12/14/24 08:45 12/14/24 09:11 12/14/24 08:45
I&O
12/13/24 12/14/24 12/15/24
06:59 06:59 06:59
Intake Total 660 / 660
Balance 660 / 660
Review of Systems
-
History Source: Patient
All other systems: Reviewed and negative
Physical Exam
-
General: No Apparent Distress
Musculoskeletal: No Clubbing, No Cyanosis and No Edema
Neuro: Awake, Alert, Oriented and AO x 3
Psych: Calm
--- NOTE | 2024-12-14 11:20 | W.DCSUMMARY ---
Discharge Summary
Discharge Data
Date of Admission: 12/13/24
Date of Discharge: 12/14/24
-
Pending Results: No
Hospital Course
84yo F with PMHX of metastatic breast CA, hypothyroidism, HTN came with 1 day of LLE swelling, found acute DVT. CT chest also done but not concerning of pulmonary embolism, also patient not hypoxic. No significant LLE pain or discoloration seen
bedside. [facility] evaluated and no intervention needed. Patient switched to Eliquis as copay is around $50 per mo and family agreeable. Discussed self-monitoring for signs of bleeding, such as sudden weakness, paleness, black or bloody stools. Advised
avoidance of head trauma and falls. Patient and family verbalized understanding of the instructions. Discussed follow up with established oncologist for new small focus of ground-glass opacity in RUL seen on CT. Requested home PT/OT. Medically
stable to d/c
I have spent at least 36min reviewing chart, test results, communication with consultants and providing direct patient care
Patient was managed for:
#Acute DVT
#Leukocytosis
#Small focus of ground-glass opacity within the RUL
#Breast CA
#Metastatic disease of the spine
#Chronic vertebral compression deformities
#Hypothyroidism
#HLD
#essential HTN
Discharge Plan
-
Patient Disposition: Home with Home Care
Discharge Diagnosis/Procedures: Acute DVT
Diet: Low Cholesterol
Activity: No restrictions
Other Services: PT
Activity Restrictions/Additional Instructions:
self-monitoring for signs of bleeding, such as sudden weakness, paleness, black or bloody stools. Advise avoidance of head trauma and falls. follow up with established oncologist for new small focus of ground-glass opacity in RUL seen on CT. follow
up with established oncologist for new small focus of ground-glass opacity in RUL seen on CT - recommend to repeat PET
Referrals:
[facility] CRNP [Family Provider, Internal Medicine]
Additional Discharge Medication Instructions: continue Eliquis 10mg BID for 13 doses, then switch to 5mg BID
Prescriptions:
New
Eliquis 5 mg tablet
5 mg PO DIRECTED Qty: 74 0RF
Rx Instructions:
Take 10mg BID for 7 days, then switch to 5mg BID until told to stop by doctor
Continued
calcium 600 mg Capsule
1,200 mg PO 1XD
carvedilol 12.5 mg Tablet
12.5 mg PO 2XD
trazodone 50 mg Tablet
50 mg PO HS
capecitabine 500 mg Tablet
500 mg PO 2XD
Rx Instructions:
2 PILLS IN AM AND 2 PILLS IN PM
levothyroxine 13 mcg Capsule
1.12 mcg PO DAILY
Vitamin D3
50 mg PO DAILY
vitamin I64-nukue acid
1,000 mg PO DAILY
Discharge Orders:
Discharge Patient (As Directed); Ordered 12/14/24
Ordered By: Duarte Bland
Discharge Date and Time
Print Language: ETHIOPIAN
[2024-12-14] MEDS: FLUZONE HIGH-DOSE 2025-26 0.5 ML IM (13:07)
[2024-12-14 13:08] VITALS: BP 111/61
--- NOTE | 2024-12-14 13:16 | CM ---
CM reviewed chart, patient seen bedside with daughter, discussed plan for discharge today.
Patient and daughter agreeable to referral to [facility] for PT, VN, aware patient will not be seen daily, TT to [facility] liaison with referral.
CM spoke with liaison at [facility], home care will call patients daughter regarding additional care.
IMM verbally reviewed, provided with copy, placed in chart.
Daughter will transport home.
CM will continue to follow for all discharge planning needs.
Plan; return to [facility] with referral to [facility]
--- NOTE | 2024-12-14 13:55 | VNURNOTE ---
Home Health Liaison met with patient and daughter at bedside to discuss [facility] nurse/therapy, visits, schedule and homebound status. Both are agreeable and understand that visits at home will be 2-3 x per week to assess and teach medical
management. Both are aware that [facility] will contact them for start of care in 1-2 days after discharge from . Provided contact number for [facility].
[facility] referral completed in [facility].
[2024-12-14 14:08] VITALS: BP 111/61
== END 2024-12-14 14:34 | disposition home health service (06) | DRG 300 ==
LOC: 4 WEST ACU 01:28
PROVIDERS: Nurse Practitioner; ADMITTING PHYSICIAN Internal Medicine; ATTENDING PHYSICIAN Internal Medicine; CONSULT PHYSICIAN Surgery Vascular Surgery; EMERGENCY PHYSICIAN Emergency Medicine; FAMILY PHYSICIAN Nurse Practitioner Primary Care
DX: I82.4Z2 Acute embolism and thrombosis of unspecified deep veins of left distal lower extremity (principal); C79.51 Secondary malignant neoplasm of bone; I82.412 Acute embolism and thrombosis of left femoral vein; I82.812 Embolism and thrombosis of superficial veins of left lower extremity; D72.829 Elevated white blood cell count, unspecified; C50.919 Malignant neoplasm of unspecified site of unspecified female breast; E03.9 Hypothyroidism, unspecified; E78.5 Hyperlipidemia, unspecified; I12.9 Hypertensive chronic kidney disease with stage 1 through stage 4 chronic kidney disease, or unspecified chronic kidney disease; N18.30 Chronic kidney disease, stage 3 unspecified; M54.9 Dorsalgia, unspecified; Z66 Do not resuscitate; G89.29 Other chronic pain; Z79.890 Hormone replacement therapy; Z79.899 Other long term (current) drug therapy
CPT/HCPCS: 71275; 72100; 80048; 80053; 85025; 85027; 85730; 90662; 93971; 96374; 97162; 99285; G0008; Q9967

== ENCOUNTER → 2024-12-22 09:36 | Outpatient (REF) | payer MEDICARE, SELFPAY | LOC: RAD 09:36 | PROVIDERS: ATTENDING PHYSICIAN Nurse Practitioner Primary Care; OTHER PHYSICIAN Internal Medicine | DX: I82.412 Acute embolism and thrombosis of left femoral vein (principal) | CPT/HCPCS: 93971 ==